=== PATIENT | male | born 1970 | race Two or more races ===

== ENCOUNTER 2023-02-06 12:40 | Emergency (ER) | payer MEDICAID, OTHER ==
[~2023-02-06] VITALS: Ht 180.3 cm; Wt 91.0 kg
[2023-02-06 12:58] VITALS: BP 128/100
[2023-02-06] MEDS ORDERED: LIDOCAINE 1% HCL (LOCAL ANESTH.) INJ 20ML MDV ID ONE (15:15)
[2023-02-06] MEDS ORDERED: CEPH-510 PO (16:14)
[2023-02-06] MEDS ORDERED: IBUP600T28 PO (16:15)
[2023-02-06] MEDS ORDERED: TETANUS-DIPTH-ACEL PERTUSSIS 0.5ML SYR Tdap IM ONE (16:15)
[2023-02-06] MEDS ORDERED: NEOMYCIN-BACITRACIN-POLYM UNITDOSE PKG TOP OINT TOP ONE (16:15)
== END 2023-02-06 16:41 | disposition home or self-care (01) ==
LOC: ER 12:40
DX: S61.512A Laceration without foreign body of left wrist, initial encounter (principal); W25.XXXA Contact with sharp glass, initial encounter; Y93.89 Activity, other specified; Y92.89 Other specified places as the place of occurrence of the external cause; Y99.8 Other external cause status
CPT/HCPCS: 12001; 73110; 90471; 90715; 99283; J2001

== ENCOUNTER 2023-02-27 10:18 | Inpatient (IN) | payer MEDICAID ==
[~2023-02-27] VITALS: Ht 170.2 cm; Wt 83.9 kg
[~2023-02-27 10:18] MED LIST: CEPH-510 PO; IBUP1TAB5 PO
[2023-02-27 13:35] LABS: Hematocrit 28.5 % (41.0-53.0); Hemoglobin 9.1 g/dL (13.5-17.5); Mean Corpuscular Hgb Conc. 31.8 g/dL (32.0-36.0); Mean Corpuscular Volume 72.3 fL (80.0-100.0); Red Blood Cells 3.94 10^6/uL (4.5-5.90); Red Cell Distribution Width 19.5 % (11.8-14.3); White Blood Cell 7.1 10^3/uL (4.4-10.8)
[2023-02-27 13:42] LABS: Band Neutrophils % (manual) 0; Basophils % (manual) 0 (0.0-2.0); Blast Cells 0; Metamyelocytes % 0; Myelocytes % 0; Promyelocytes % 0; Reactive Lymphocytes 0
[2023-02-27 13:53] LABS: Albumin 2.7 g/dL (3.4-5.0); Calcium 7.9 mg/dL (8.5-10.1)
[2023-02-27 13:58] LABS: BUN/Creatinine Ratio 15.4 (10.0-20.0); Bilirubin, Total 5.2 mg/dL (0.2-1.0); Total Protein 7.4 g/dL (6.4-8.2)
[2023-02-27] MEDS ORDERED: IPRATROPIUM BROM 0.5 MG/2.5ML INH SOL NEB ONE (14:00)
[2023-02-27] MEDS ORDERED: ALBUTEROL SULF 2.5 MG/0.5ML(0.5%) NEB SOLN NEB ONE (14:00)
[2023-02-27] MEDS ORDERED: DexAMETHasone SOD PHOS 10MG/1ML VIAL INJ IM ONE (14:00)
[2023-02-27 14:05] LABS: Potassium 2.9 mmol/L (3.5-5.1)
[2023-02-27 14:16] LABS: Eosinophils % (manual) 2 (0-7); Lymphocytes % (manual) 14 (10.0-50.0); Monocytes % (manual) 12 (0-12)
[2023-02-27] MEDS ORDERED: SODIUM CHLORIDE 0.9% 1,000 ML IV ONE (14:30)
[2023-02-27] MEDS ORDERED: POTASSIUM CHL 20 Meq TABLET PO ONE (14:30)
[2023-02-27] MEDS ORDERED: IOHEXOL 350 MG/ML 100ML IJ ONE (14:38)
[2023-02-27] MEDS ORDERED: DexAMETHasone SOD PHOS 10MG/1ML VIAL INJ IV ONE (15:00)
[2023-02-27] MEDS ORDERED: MORPHINE SULFATE INJ 2 MG/ml SYRG IV PRN ×2 (15:30)
[2023-02-27] MEDS ORDERED: NITROGLYCERIN 0.4 MG SL TAB SL PRN (15:30)
[2023-02-27] MEDS ORDERED: IPRATROPIUM BROM 0.5 MG/2.5ML INH SOL NEB PRN (15:30)
[2023-02-27] MEDS ORDERED: ACETAMINOPHEN 325 MG TAB PO PRN (15:30)
[2023-02-27] MEDS ORDERED: ALBUTEROL SULF 2.5 MG/0.5ML(0.5%) NEB SOLN NEB PRN (15:30)
[2023-02-27 15:50] LABS: INR 1.18 (0.9-1.15); Partial Thromboplastin Time 29.6 sec (24.6-33.4)
[2023-02-27 15:58] VITALS: BP 106/75
[2023-02-27 16:00] LABS: Cholesterol 92 mg/dL (< 200); HDL Cholesterol 9 mg/dL (40-59); LDL Cholesterol 78 mg/dL (< 100); Triglycerides 108 mg/dL (< 150)
[2023-02-27 17:38] LABS: % Iron Saturation 20.7 % (20-55)
[2023-02-27] MEDS: IPRATROPIUM BROM 0.5 MG/2.5ML INH SOL NEB SCH (17:42)
[2023-02-27] MEDS: ALBUTEROL SULF 2.5 MG/0.5ML(0.5%) NEB SOLN NEB SCH (17:43)
[2023-02-27 17:51] LABS: Ferritin 94.8 ng/mL (10-322)
[2023-02-27 17:52] LABS: Folate (Folic Acid) 11.66 ng/mL (5.38-24)
[2023-02-27] MEDS: cefTRIAXone 1GM/50ML D5W 50 ML IV SCH (22:01)
[2023-02-27] MEDS ORDERED: POTASSIUM CHL 20MEQ/100ML 200 ML IV ONE (23:10)
[2023-02-27] MEDS: POTASSIUM CHL 20MEQ/100ML 100 ML IV SCH (23:12)
[2023-02-27] MEDS: AZITHROMYCIN 500MG/ 250ML 250 ML IV SCH (23:12)
[2023-02-27] MEDS: SODIUM CHLORIDE 0.9% 1,000 ML IV SCH (23:12)
[2023-02-28] MEDS: ALBUTEROL SULF 2.5 MG/0.5ML(0.5%) NEB SOLN NEB SCH ×4 (00:33→18:29)
[2023-02-28] MEDS: IPRATROPIUM BROM 0.5 MG/2.5ML INH SOL NEB SCH ×4 (00:33→18:29)
[2023-02-28] MEDS: POTASSIUM CHL 20MEQ/100ML 100 ML IV SCH (01:17)
[2023-02-28 01:37] LABS: Urine Bacteria NONE SEEN /hpf (None Seen); Urine Blood 1+ /uL (Negative); Urine Hyaline Cast FEW /lpf (0 - 2); Urine Specific Gravity 1.018 (1.001-1.035); Urine WBC 373 /hpf (0 - 3); Urine WBC Clumps PRESENT /hpf (None Seen)
[2023-02-28 01:51] LABS: Alcohol, Urine < 3.0 mg/dL (0-10); Cocaine Screen, Urine NEGATIVE (NEGATIVE); Opiate Scree,Urine NEGATIVE (NEGATIVE)
[2023-02-28 01:59] LABS: Amphetamine Screen, Urine NEGATIVE (NEGATIVE); Barbiturate Scree,Urine NEGATIVE (NEGATIVE); Benzodiazephine Screen, Urine NEGATIVE (NEGATIVE); Cannabinoid Screen, Urine POSITIVE (NEGATIVE); Phencyclidine Screen, Urine NEGATIVE (NEGATIVE)
[2023-02-28] MEDS: SODIUM CHLORIDE 0.9% 1,000 ML IV SCH ×3 (02:30→23:21)
[2023-02-28 06:54] LABS: Hemoglobin 8.5 g/dL (13.5-17.5); Mean Corpuscular Hgb Conc. 32.1 g/dL (32.0-36.0); Red Blood Cells 3.39 10^6/uL (4.5-5.90); White Blood Cell 3.3 10^3/uL (4.4-10.8)
[2023-02-28 06:57] LABS: Hematocrit 26.4 % (41.0-53.0); Mean Corpuscular Volume 77.7 fL (80.0-100.0)
[2023-02-28 07:03] LABS: Red Cell Distribution Width 20.2 % (11.8-14.3)
[2023-02-28 07:06] LABS: Band Neutrophils % (manual) 0; Basophils % (manual) 0 (0.0-2.0); Blast Cells 0; Eosinophils % (manual) 0 (0-7); Metamyelocytes % 0; Myelocytes % 0; Promyelocytes % 0; Reactive Lymphocytes 0
[2023-02-28 08:02] LABS: Lymphocytes % (manual) 11 (10.0-50.0); Monocytes % (manual) 8 (0-12)
[2023-02-28] MEDS: PANTOPRAZOLE 40 MG/10 ML VIAL INJ IV SCH (09:34)
[2023-02-28] MEDS: cefTRIAXone 1GM/50ML D5W 50 ML IV SCH (09:34)
[2023-02-28] MEDS: AZITHROMYCIN 500MG/ 250ML 250 ML IV SCH (10:49)
[2023-02-28 12:25] LABS: Albumin 2.3 g/dL (3.4-5.0); Calcium 7.8 mg/dL (8.5-10.1); Potassium 3.7 mmol/L (3.5-5.1)
[2023-02-28 12:31] LABS: BUN/Creatinine Ratio 19.4 (10.0-20.0); Bilirubin, Total 3.9 mg/dL (0.2-1.0); Total Protein 7.3 g/dL (6.4-8.2)
[2023-02-28] MEDS ORDERED: LORazepam 2MG/ML-1ML VIAL IV ONE (18:45)
[2023-02-28] MEDS: chlordiazePOXIDE HCL 25 MG CAP PO SCH (19:02)
[2023-02-28] MEDS: FOLIC ACID 1 MG, MULTIPLE VITAMIN 10 ML, MAGNESIUM SULF SDV 50% 8 MEQ, THIAMINE INJ 100... INJ SCH ×5 (21:35)
[2023-02-28 22:30] VITALS: BP 119/84
[2023-02-28 23:57] VITALS: BP 119/84
[2023-03-01] MEDS: ALBUTEROL SULF 2.5 MG/0.5ML(0.5%) NEB SOLN NEB SCH ×4 (00:02→19:48)
[2023-03-01] MEDS: IPRATROPIUM BROM 0.5 MG/2.5ML INH SOL NEB SCH ×4 (00:02→19:48)
[2023-03-01] MEDS: chlordiazePOXIDE HCL 25 MG CAP PO SCH ×4 (02:46→22:38)
[2023-03-01] MEDS ORDERED: LORazepam 2MG/ML-1ML VIAL IV ONE ×2 (05:15)
[2023-03-01 08:00] VITALS: BP 119/67
[2023-03-01] MEDS: SODIUM CHLORIDE 0.9% 1,000 ML IV SCH ×2 (08:30→18:30)
[2023-03-01 09:00] VITALS: BP 119/67
[2023-03-01] MEDS: cefTRIAXone 1GM/50ML D5W 50 ML IV SCH (09:00)
[2023-03-01 09:34] LABS: Hepatitis A Total Antibody Negative (Negative)
[2023-03-01] MEDS: PANTOPRAZOLE 40 MG/10 ML VIAL INJ IV SCH (10:00)
[2023-03-01] MEDS: AZITHROMYCIN 500MG/ 250ML 250 ML IV SCH (10:00)
[2023-03-01 10:06] LABS: Hepatitis B Surface Antibody Negative (Negative)
[2023-03-01] MEDS: FOLIC ACID 1 MG, MULTIPLE VITAMIN 10 ML, MAGNESIUM SULF SDV 50% 8 MEQ, THIAMINE INJ 100... INJ SCH ×5 (12:00)
[2023-03-01 13:00] VITALS: BP 114/61
[2023-03-01] MEDS ORDERED: LORazepam 2MG/ML-1ML VIAL IM ONE (13:00)
[2023-03-01] MEDS ORDERED: HALOPERIDOL LACTATE 5 MG/ML INJ VIAL IM ONE (13:00)
[2023-03-01 13:11] LABS: Hepatitis C Antibody Negative (Negative)
[2023-03-02] MEDS: LORazepam 2MG/ML-1ML VIAL IV PRN (02:59)
[2023-03-02] MEDS: SODIUM CHLORIDE 0.9% 1,000 ML IV SCH (03:09)
[2023-03-02] MEDS: ALBUTEROL SULF 2.5 MG/0.5ML(0.5%) NEB SOLN NEB SCH ×5 (06:00→18:00)
[2023-03-02] MEDS: IPRATROPIUM BROM 0.5 MG/2.5ML INH SOL NEB SCH ×5 (06:00→18:00)
[2023-03-02] MEDS: AZITHROMYCIN 500MG/ 250ML 250 ML IV SCH (10:00)
[2023-03-02] MEDS: PANTOPRAZOLE 40 MG/10 ML VIAL INJ IV SCH (10:09)
[2023-03-02] MEDS: chlordiazePOXIDE HCL 25 MG CAP PO SCH ×2 (10:10→21:25)
[2023-03-02] MEDS: cefTRIAXone 1GM/50ML D5W 50 ML IV SCH (10:10)
[2023-03-02] MEDS: FOLIC ACID 1 MG, MULTIPLE VITAMIN 10 ML, MAGNESIUM SULF SDV 50% 8 MEQ, THIAMINE INJ 100... INJ SCH ×5 (12:00)
[2023-03-02 22:00] VITALS: BP 115/79
[2023-03-03 05:00] VITALS: BP 120/77
[2023-03-03] MEDS ORDERED: chlordiazePOXIDE HCL 25 MG CAP PO SCH (07:00)
[2023-03-03 07:43] LABS: Basophils # (auto) 0 10 ^3/uL (0-0.2); Eosinophils # (auto) 0.1 10 ^3/uL (0-0.8); Monocytes # (auto) 0.4 10 ^3/uL (0-1.3); Neutrophils # (auto) 1.6 10 ^3/uL (1.6-8.6)
[2023-03-03 07:44] LABS: Basophils % (auto) 0.5 % (0.0-2.0); Hematocrit 27.7 % (41.0-53.0); Lymphocytes # (auto) 0.6 10 ^3/uL (0.4-5.4); Lymphocytes % (auto) 22.5 % (10.0-50.0); Mean Corpuscular Hemoglobin 26.9 pg (28.0-32.0); Mean Corpuscular Hgb Conc. 32.6 g/dL (32.0-36.0); Mean Corpuscular Volume 82.4 fL (80.0-100.0); Monocytes % (auto) 14.3 % (0.0-12.0); Neutrophils % (auto) 60.7 % (37.0-80.0); Nucleated Red Blood Cells % 0.2 %; Red Blood Cells 3.35 10^6/uL (4.5-5.90); White Blood Cell 2.7 10^3/uL (4.4-10.8)
[2023-03-03 07:56] LABS: Albumin 2.1 g/dL (3.4-5.0); Calcium 7.5 mg/dL (8.5-10.1); Potassium 3.5 mmol/L (3.5-5.1)
[2023-03-03 07:59] LABS: Bilirubin, Total 1.8 mg/dL (0.2-1.0); Total Protein 6.4 g/dL (6.4-8.2)
[2023-03-03 09:20] VITALS: BP 120/77
[2023-03-03] MEDS: cefTRIAXone 1GM/50ML D5W 50 ML IV SCH (09:42)
[2023-03-03] MEDS: LACTULOSE 20Gm/30ML SOLN PO SCH (09:48)
[2023-03-03] MEDS: PANTOPRAZOLE 40 MG/10 ML VIAL INJ IV SCH (09:48)
[2023-03-03] MEDS: AZITHROMYCIN 500MG/ 250ML 250 ML IV SCH (10:46)
[2023-03-03] MEDS: FOLIC ACID 1 MG, MULTIPLE VITAMIN 10 ML, MAGNESIUM SULF SDV 50% 8 MEQ, THIAMINE INJ 100... INJ SCH ×5 (13:53)
[2023-03-03 14:41] VITALS: BP 104/72
[2023-03-03 16:19] VITALS: BP 120/87
[2023-03-03 22:33] VITALS: BP 106/69
[2023-03-04 05:00] VITALS: BP 126/79
[2023-03-04 08:23] VITALS: BP 106/75
[2023-03-04] MEDS: LACTULOSE 20Gm/30ML SOLN PO SCH (08:51)
[2023-03-04] MEDS: cefTRIAXone 1GM/50ML D5W 50 ML IV SCH (08:51)
[2023-03-04] MEDS: PANTOPRAZOLE 40 MG/10 ML VIAL INJ IV SCH (08:52)
[2023-03-04] MEDS: AZITHROMYCIN 500MG/ 250ML 250 ML IV SCH (10:10)
[2023-03-04 13:00] VITALS: BP 118/81
[2023-03-04] MEDS: FOLIC ACID 1 MG, MULTIPLE VITAMIN 10 ML, MAGNESIUM SULF SDV 50% 8 MEQ, THIAMINE INJ 100... INJ SCH ×5 (14:34)
[2023-03-04 16:48] VITALS: BP 106/69
[2023-03-04] MEDS: HYDROcodone-ACET 5/325MG TAB PO PRN (17:54)
[2023-03-04] MEDS: LORazepam 2MG/ML-1ML VIAL IV PRN (20:34)
[2023-03-04 22:00] VITALS: BP 119/74
[2023-03-05 05:00] VITALS: BP 124/80
[2023-03-05 08:00] VITALS: BP 116/71
[2023-03-05 08:10] VITALS: BP 116/71
[2023-03-05] MEDS: cefTRIAXone 1GM/50ML D5W 50 ML IV SCH (08:33)
[2023-03-05] MEDS: PANTOPRAZOLE 40 MG/10 ML VIAL INJ IV SCH (08:33)
[2023-03-05] MEDS: HYDROcodone-ACET 5/325MG TAB PO PRN ×2 (09:18→14:30)
[2023-03-05] MEDS: AZITHROMYCIN 500MG/ 250ML 250 ML IV SCH (09:18)
[2023-03-05] MEDS: LACTULOSE 20Gm/30ML SOLN PO SCH (09:18)
[2023-03-05 11:59] VITALS: BP 110/80
[2023-03-05] MEDS: FOLIC ACID 1 MG, MULTIPLE VITAMIN 10 ML, MAGNESIUM SULF SDV 50% 8 MEQ, THIAMINE INJ 100... INJ SCH ×5 (14:29)
[2023-03-05 16:00] VITALS: BP 99/60
[2023-03-05] MEDS: LORazepam 2MG/ML-1ML VIAL IV PRN (21:32)
[2023-03-05 22:00] VITALS: BP 124/91
[2023-03-06 05:00] VITALS: BP 108/69
[2023-03-06 08:00] VITALS: BP 96/56
[2023-03-06] MEDS: cefTRIAXone 1GM/50ML D5W 50 ML IV SCH (09:15)
[2023-03-06] MEDS: PANTOPRAZOLE 40 MG/10 ML VIAL INJ IV SCH (09:15)
[2023-03-06] MEDS: AZITHROMYCIN 500MG/ 250ML 250 ML IV SCH (09:27)
[2023-03-06] MEDS: LACTULOSE 20Gm/30ML SOLN PO SCH (09:27)
[2023-03-06 12:00] VITALS: BP 101/59
[2023-03-06] MEDS: FOLIC ACID 1 MG, MULTIPLE VITAMIN 10 ML, MAGNESIUM SULF SDV 50% 8 MEQ, THIAMINE INJ 100... INJ SCH ×5 (13:00)
[2023-03-06 16:00] VITALS: BP 129/69
[2023-03-06 18:51] VITALS: BP_SYST 101; BP_SYST 90; BP_DIAS 59; BP_DIAS 87
[2023-03-06 22:00] VITALS: BP 123/85
[2023-03-07 05:00] VITALS: BP 109/63
[2023-03-07 08:30] VITALS: BP 90/57
[2023-03-07 09:00] VITALS: BP 90/57
[2023-03-07] MEDS: LACTULOSE 20Gm/30ML SOLN PO SCH (09:38)
[2023-03-07] MEDS: PANTOPRAZOLE 40 MG/10 ML VIAL INJ IV SCH (09:38)
[2023-03-07] MEDS: cefTRIAXone 1GM/50ML D5W 50 ML IV SCH (09:38)
[2023-03-07] MEDS: AZITHROMYCIN 500MG/ 250ML 250 ML IV SCH (10:20)
[2023-03-07] MEDS: FOLIC ACID 1 MG, MULTIPLE VITAMIN 10 ML, MAGNESIUM SULF SDV 50% 8 MEQ, THIAMINE INJ 100... INJ SCH ×5 (12:23)
[2023-03-07 13:00] VITALS: BP 124/73
== END 2023-03-07 17:05 | disposition left against medical advice (07) | DRG 137 ==
LOC: ER 10:18 → TELE 15:24 → TELE-EAST 02-28 22:00
PROVIDERS: ADMIT Registered Nurse; ATTEND Family Medicine
DX: U07.1 COVID-19 (principal); J96.01 Acute respiratory failure with hypoxia; J12.82 Pneumonia due to coronavirus disease 2019; E43 Unspecified severe protein-calorie malnutrition; D61.818 Other pancytopenia; E72.4 Disorders of ornithine metabolism; F10.131 Alcohol abuse with withdrawal delirium; K76.6 Portal hypertension; E87.1 Hypo-osmolality and hyponatremia; E87.6 Hypokalemia; Z53.29 Procedure and treatment not carried out because of patient's decision for other reasons; K74.60 Unspecified cirrhosis of liver; D50.9 Iron deficiency anemia, unspecified; F12.10 Cannabis abuse, uncomplicated; F41.9 Anxiety disorder, unspecified; Y90.9 Presence of alcohol in blood, level not specified; Z68.31 Body mass index [BMI] 31.0-31.9, adult; N39.0 Urinary tract infection, site not specified; Z71.51 Drug abuse counseling and surveillance of drug abuser
CPT/HCPCS: 36415; 36600; 71045; 71046; 71275; 76705; 80053; 80061; 80307; 81001; 82140; 82306; 82607; 82728; 82746; 82805; 83036; 83540; 83550; 83615; 83735; 84132; 84443; 84484; 85007; 85025; 85027; 85045; 85379; 85384; 85610; 85730; 86704; 86706; 86708; 86803; 87040; 87086; 87340; 87426; 87804; 93005; 94640; 97116; 97163; 97530; C9113; G0378; J0696; J1100; J3480

== ENCOUNTER 2023-04-16 17:10 | Emergency (ER) | payer MEDICAID ==
[~2023-04-16] VITALS: Ht 180.3 cm; Wt 100.0 kg
[2023-04-16 17:50] LABS: Urine Bacteria FEW /hpf (None Seen); Urine Blood Negative /uL (Negative); Urine Specific Gravity 1.002 (1.001-1.035); Urine WBC 10 /hpf (0 - 3)
[2023-04-16 18:55] LABS: Eosinophils # (auto) 0.1 10 ^3/uL (0-0.8); Hematocrit 33.4 % (41.0-53.0); Hemoglobin 10.5 g/dL (13.5-17.5); Mean Corpuscular Volume 73.7 fL (80.0-100.0); Monocytes % (auto) 8.5 % (0.0-12.0); Nucleated Red Blood Cells % 0.1 %
[2023-04-16 18:57] LABS: Basophils # (auto) 0 10 ^3/uL (0-0.2); Basophils % (auto) 0.8 % (0.0-2.0); Lymphocytes # (auto) 2.6 10 ^3/uL (0.4-5.4); Lymphocytes % (auto) 48.5 % (10.0-50.0); Mean Corpuscular Hemoglobin 23.2 pg (28.0-32.0); Mean Corpuscular Hgb Conc. 31.4 g/dL (32.0-36.0); Monocytes # (auto) 0.5 10 ^3/uL (0-1.3); Neutrophils # (auto) 2.1 10 ^3/uL (1.6-8.6); Neutrophils % (auto) 40.2 % (37.0-80.0); Red Blood Cells 4.54 10^6/uL (4.5-5.90); White Blood Cell 5.3 10^3/uL (4.4-10.8)
[2023-04-16 19:07] LABS: Red Cell Distribution Width 23.6 % (11.8-14.3)
[2023-04-16 19:10] LABS: Albumin 3.4 g/dL (3.4-5.0); Calcium 8.5 mg/dL (8.5-10.1); Potassium 3.6 mmol/L (3.5-5.1)
[2023-04-16 19:12] LABS: Barbiturate Scree,Urine NEGATIVE (NEGATIVE); Benzodiazephine Screen, Urine NEGATIVE (NEGATIVE); Cannabinoid Screen, Urine NEGATIVE (NEGATIVE); Cocaine Screen, Urine NEGATIVE (NEGATIVE)
[2023-04-16 19:21] LABS: BUN/Creatinine Ratio 14.1 (10.0-20.0); Bilirubin, Total 1.2 mg/dL (0.2-1.0); Total Protein 8.1 g/dL (6.4-8.2)
[2023-04-16 19:21] LABS: Amphetamine Screen, Urine NEGATIVE (NEGATIVE); Opiate Scree,Urine NEGATIVE (NEGATIVE); Phencyclidine Screen, Urine NEGATIVE (NEGATIVE)
[2023-04-16] MEDS ORDERED: CHLO25CA56 PO (20:00)
[2023-04-16] MEDS ORDERED: levoFLOXacin 250 MG TAB PO ONE (20:00)
[2023-04-16] MEDS ORDERED: LEVO750T8 PO (20:00)
[2023-04-16 20:53] VITALS: BP 121/87
== END 2023-04-16 20:55 | disposition home or self-care (01) ==
LOC: ER 17:10
DX: F10.139 Alcohol abuse with withdrawal, unspecified (principal); N39.0 Urinary tract infection, site not specified; Z79.899 Other long term (current) drug therapy; Y90.8 Blood alcohol level of 240 mg/100 ml or more
CPT/HCPCS: 36415; 80053; 80307; 80320; 81001; 85025

== ENCOUNTER 2023-05-01 09:58 | Emergency (ER) | payer MEDICAID ==
[~2023-05-01] VITALS: Ht 152.4 cm; Wt 96.8 kg
[~2023-05-01 09:58] MED LIST changes: -CEPH-510 PO; +CHLO25CA56 PO; -IBUP1TAB5 PO; +LEVO750T8 PO
[2023-05-01 10:02] VITALS: BP 125/82; PULSE 82; RESP 20; TEMP 98.9; O2SAT 99
== END 2023-05-01 13:52 ==
LOC: ER 09:58
DX: S93.491A Sprain of other ligament of right ankle, initial encounter (principal); F10.90 Alcohol use, unspecified, uncomplicated; Z79.899 Other long term (current) drug therapy; X50.9XXA Other and unspecified overexertion or strenuous movements or postures, initial encounter; Y93.89 Activity, other specified; Y92.89 Other specified places as the place of occurrence of the external cause; Y99.8 Other external cause status